=== PATIENT | male | born 1995 | race Two or more races ===

== ENCOUNTER 2020-05-12 15:13 | Emergency (ER) | payer MEDICAID ==
[~2020-05-12] VITALS: Ht 170.2 cm; Wt 95.0 kg
== END 2020-05-12 16:35 | disposition home or self-care (01) ==
LOC: ER 15:13
DX: R11.2 Nausea with vomiting, unspecified (principal); R05 Cough; R51.9 Headache, unspecified; R10.9 Unspecified abdominal pain; Z20.828 Contact with and (suspected) exposure to other viral communicable diseases
CPT/HCPCS: 36415; 87635; 99281; 99283